=== PATIENT | male | born 1995 | race Caucasian/White ===

== ENCOUNTER 2017-03-19 18:12 | Emergency (ER) | payer OTHER ==
[~2017-03-19] VITALS: Ht 175.3 cm; Wt 72.6 kg
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
[~2017-03-19 18:12] MED LIST: TRILEPTAL300 MG PO
[2017-03-19] MEDS ORDERED: NO MEDICATIONS (18:19)
[2017-03-19] MEDS ORDERED: VOLTAREN75 MG PO (21:12)
== END 2017-03-19 21:12 | disposition home or self-care (01) ==
LOC: SED 18:12
DX: S01.01XA Laceration without foreign body of scalp, initial encounter (principal); S00.83XA Contusion of other part of head, initial encounter; J45.909 Unspecified asthma, uncomplicated; F91.3 Oppositional defiant disorder; F90.9 Attention-deficit hyperactivity disorder, unspecified type; F17.200 Nicotine dependence, unspecified, uncomplicated; X58.XXXA Exposure to other specified factors, initial encounter; Y92.410 Unspecified street and highway as the place of occurrence of the external cause
CPT/HCPCS: 12001; 70450; 70486; 99283